=== PATIENT | male | born 1955 | race African-American/Black ===

== ENCOUNTER → 2017-01-16 | Day surgery (SDC) | payer OTHER ==
[~2017-01-16] MED LIST: ASPIRIN EC81 M1 PO; ATORVASTATIN CA40 MG PO; BEET JUICE PO; BENICAR PO; CARAFATE1 GM; CINNAMON PLUS1 EACH PO; CO Q-10200 MG PO; DHEA25 M1 PO; GERITOL COMPLE1 EACH; HYDROCHLOROTHIA25 MG PO; IRON45 MG PO; LUMIGAN2.5 ML; METFORMIN HCL500 M1 PO; NORVASC10 MG PO; OMEGA-3100 MG PO; POTASSIUM CL PO; PRAVASTATIN SOD40 MG PO; VIT B12; VIT C PO; VITAL-D RX TABL1 TAB PO; VITAMIN C; ZANTAC150 MG; ZYRTEC10 M2 PO
--- NOTE | ~2017-01-16 | OR ---
Unit #: [id number] #: [id number] Patient: IVELISSE REEVES [id number] [address] [address] [id number] O MR#: [id number] NAME: IVELISSE REEVES ROOM: Date of Procedure: 01/16/2017 Admission Date: 01/16/2017 Surgeon: Rick Mills M.D. : 1955 Attending Physician: Rick Mills M.D. Primary Care Physician: Jluis Lujan M.D. OPERATIVE REPORT PRIMARY CARE PHYSICIAN Jluis Ljuan M.D. ONCOLOGIST Lambert De Leon M.D. PREOPERATIVE DIAGNOSES 1. Unexplained weight loss. 2. Rectal bleeding. 3. Melenic stools. POSTOPERATIVE DIAGNOSIS 1. Benign-appearing gastric ulcer. 2. Mild gastritis. 3. Colon polyps x5. PROCEDURES PERFORMED 1. Esophagogastroduodenoscopy to third portion of duodenum with CLOtest and biopsy of ulcer. 2. Colonoscopy to cecum with snare polypectomy x3 and cold biopsy forceps polypectomy x2. ANESTHESIA Monitored anesthesia. INDICATIONS FOR PROCEDURE Mr. Max is a 61-year-old gentleman, who has had a previous history of colon cancer and colon polyps. He has been lost followup recently, came to the office complaining of unexplained weight loss and intermittent bright red blood per rectum mixed with burgundy or black stools. DESCRIPTION OF PROCEDURE The patient was admitted to [facility], positively identified, and transported to the endoscopy unit and after appropriate monitoring and positioning, he was sedated by the nurse sterile supervisor. Bite-block had been placed. The endoscope was passed through the oral cavity in the esophagus under direct vision. We passed through the esophagus into the stomach, insufflated the stomach, and passed through the pylorus down the second and third portion of the duodenum. On antegrade and retrograde visualization, he had some mild gastritis, so a CLOtest was performed. Along the greater curvature anteriorly, there was an area looked like it may be a healing gastric ulcer. It was benign in Unit #: [id number] #: [id number] Patient: IVELISSE REEVES appearance. A biopsy x2 was performed for further assessment. In retroflexing the scope, no other findings in the upper fundus or cardia were noted. The GE junction was well demarcated with no hiatal hernia, no esophagitis, no [place] mucosa, no ulceration. The entire esophagus and larynx appeared normal. After completion of the upper scope, the patient was repositioned. On rectal examination, there was no local anorectal pathology, and prostate was normal to digital exam. Colonoscope was passed through the anal verge throughout the extent of the colon to the cecum. His previous colonic anastomosis was widely patent with no evidence of any local recurrence. In the cecum, however, he had 3 polyps, one right near the appendiceal orifice, one in the base of the cecum, and then one near the ileocecal valve. One was removed by cold biopsy forceps and the other two by snare polypectomy. All were recovered. In the distal ascending colon and proximal transverse colon, there were 2 other polyps removed, one by cold biopsy forceps and one by snare. The rest of the endoscopic evaluation was unremarkable. The patient tolerated the procedure well, was transported to the recovery in stable condition. Findings were discussed with his family. We will follow him up in the office after his path report is returned. Dictated by... Jonathan Granados/gina TD: 01/16/2017 08:40 JOB #: [id number] OPERATIVE REPORT Page 1 of 1 X Rick Mills MD PROCEDURE OPERATIVE NOTE
== END | disposition home or self-care (01) ==
LOC: COPS 05:32
DX: D12.2 Benign neoplasm of ascending colon (principal); D12.0 Benign neoplasm of cecum; K29.50 Unspecified chronic gastritis without bleeding; M19.90 Unspecified osteoarthritis, unspecified site; I10 Essential (primary) hypertension; E78.00 Pure hypercholesterolemia, unspecified; M81.0 Age-related osteoporosis without current pathological fracture; E11.9 Type 2 diabetes mellitus without complications; G47.30 Sleep apnea, unspecified; E78.5 Hyperlipidemia, unspecified; Z85.038 Personal history of other malignant neoplasm of large intestine; Z87.442 Personal history of urinary calculi; Z87.891 Personal history of nicotine dependence; Z88.2 Allergy status to sulfonamides; Z91.040 Latex allergy status; Z79.84 Long term (current) use of oral hypoglycemic drugs; Z79.899 Other long term (current) drug therapy; Z98.61 Coronary angioplasty status; Z90.49 Acquired absence of other specified parts of digestive tract
CPT/HCPCS: 82947; 87077; 88305; 88312; J2250